=== PATIENT | male | born 1975 | race Caucasian/White ===

== ENCOUNTER → 2017-05-21 11:58 | Outpatient (CLI) | payer MEDICAID ==
[2013-04-09 10:22] VITALS: BMI 36.3
== END | disposition home or self-care (01) ==
LOC: D.CT 11:30
DX: R20.0 Anesthesia of skin (principal)

== ENCOUNTER → 2018-05-27 19:25 | Outpatient (CLI) | payer MEDICAID ==
[2013-04-09 10:22] VITALS: BMI 36.3
== END | disposition home or self-care (01) ==
LOC: D.SLEEP 19:25
DX: G47.33 Obstructive sleep apnea (adult) (pediatric) (principal); Z01.812 Encounter for preprocedural laboratory examination

== ENCOUNTER 2020-04-26 12:35 | Inpatient (IN) | payer MEDICARE ==
[~2020-04-26] VITALS: Ht 180.3 cm; Wt 150.3 kg
[2020-04-26] MEDS ORDERED: BAYER CHEWABLE81 MG PO (12:57)
[2020-04-26] MEDS ORDERED: NORVASC10 MG PO (12:58)
[2020-04-26] MEDS ORDERED: KLONOPIN1 MG PO (12:59)
[2020-04-26] MEDS ORDERED: CLARITIN 10 MG10 MG PO (12:59)
[2020-04-26] MEDS ORDERED: CELEXA20 MG PO (12:59)
[2020-04-26] MEDS ORDERED: HYDRALAZINE HCL50 MG PO (13:00)
[2020-04-26] MEDS ORDERED: VIBRAMYCIN 100100 MG PO (13:00)
[2020-04-26] MEDS ORDERED: KEFLEX500 MG PO (13:01)
[2020-04-26] MEDS ORDERED: LEVEMIR IN100 UNITS/ SC (13:01)
[2020-04-26] MEDS ORDERED: GLUCOPHAGE1000 MG PO (13:02)
[2020-04-26] MEDS ORDERED: COZAAR100 MG PO (13:02)
[2020-04-26] MEDS ORDERED: METOPROLOL TART50 MG PO (13:02)
[2020-04-26] MEDS ORDERED: NIASPAN500 MG PO (13:02)
[2020-04-26] MEDS ORDERED: HYDROCODON-ACE1 EA10 PO (13:03)
[2020-04-26] MEDS ORDERED: NORTRIPTYLINE H50 MG PO (13:03)
[2020-04-26] MEDS ORDERED: NOVOLOG100 UNIT/1 SC (13:04)
[2020-04-26 13:05] VITALS: BP 137/84; BMI 44.0
--- NOTE | 2020-04-26 13:11 | NUR ---
PATIENT ADMITTED TO ROOM 2203. IV SITED TO LEFT HAND AFTER THREE ATTEMPS WITH 22 GAUGE. BED LOW. CALL DUVALL AND PESRONAL ITEMS IN REACH. MOM TAKING HOME WALLET. WILL CONTINUE TO MONITOR.
--- NOTE | 2020-04-26 13:27 | NUR ---
SPOKE WITH HERMILO WOUND CARE NURSE. STATES WAIT AND WILL CHANGE DRSG AND GET CULTURE WITH NURSE.
--- NOTE | 2020-04-26 14:41 | NUR ---
LEFT #5 TOE HAS DEGLOVED AND IS ENTIRELY PURPLE IN COLOR AND COOL TO TOUCH. PT STATED HE "STUMPED IT" A FEW DAYS AGO AND NOW NOT ONLY IS THE TOE DISCOLORED BUT HIS FOOT AND HOSKINS ARE REDDENED. THE RED AREAS WERE MARKED BY HIS NURSE. DOPPLER PULSE WAS TAKEN BY HIS NURSE ALSO. CULTURES WERE OBTAINED PER ORDERED BUT THEY WERE TAKEN SUPERFICIALLY THERE WAS NO OPEN WOUND BED. IT WAS COVERED WITH ADAPTIC AND A 4X4 THEN WRAPPED WITH KERLIX FOR PROTECTION. WOUND CARE WILL CONTINUE MONITORING.
[2020-04-26 16:03] LABS: HEMATOCRIT 35.9 % (42.0-54.0); HEMOGLOBIN 11.4 g/dL (13.5-17.5); MCH 27.7 pg (26.0-34.0); MCHC 31.8 g/dL (31.0-37.0); MCV 87.3 fL (80.0-100.0); MEAN PLATELET VOLUME 9.7 fL (7.4-10.4); PLATELET COUNT 433 10x3/uL (130-400); RBC 4.11 10x6/uL (4.20-6.10); RDW 13.6 % (11.5-14.5); WBC 20.1 10x3/uL (4.8-10.8)
[2020-04-26 16:04] LABS: ALBUMIN 2.2 g/dL (3.4-5.0); ANION GAP 17.5 mmol/L (8-16); BILIRUBIN - TOTAL 0.41 mg/dL (0.2-1.3); CALCIUM 8.9 mg/dL (8.5-10.1); CARBON DIOXIDE 21.8 mmol/L (21.0-32.0); CREATININE - SERUM 3.1 mg/dL (0.6-1.3); POTASSIUM - SERUM 5.3 mmol/L (3.5-5.1); PROTEIN - SERUM 8.1 g/dL (6.4-8.2); THYROID STIMULATING HORMONE 1.74 uIU/mL (0.36-3.74)
--- NOTE | 2020-04-26 16:16 | NUR ---
KATE MCKINNEY NOTIFIED OF BLOOD SUGAR 476. STATES GIVE PER SLIDING SCALE AND CHANGE TO BLOOD SUGAR CHECK Q4HR.
--- NOTE | 2020-04-26 17:12 | NUR ---
SPOKE WITH DR ROJAS AT [facility] WHO STATES OK TO FINISH RUNNING VANC PRIOR TO GIVING ORDERED NS BOLUS.
[2020-04-26 17:31] LABS: EOSINOPHILS 1 % (0-7); LYMPHOCYTES 15 % (15-50); NEUTROPHILS 84 % (40-80); PLATELET ESTIMATE NORMAL
[2020-04-26 17:51] VITALS: BP 134/77
--- NOTE | 2020-04-26 20:00 | NUR ---
PT SITTING UP AT EDGE OF BED, TRIPOD POSITION OVER BEDSIDE TABLE. MOTHER AT BEDSIDE. PT STATES HE HAS HAD A HARD TIME BREATHING, HE HAS SLEEP APNEA AND CPAP AT BEDSIDE. STATES HE CANNOT GET COMFORTABLE IN ANY POSITION, FEEL HEAVY CHESTED AND LIKE HE HAS A LUMP IN HIS THROAT. O2 SAT 69% ON ROOM AIR. RESP CALLED TO ROOM. PT PLACED ON 5L/NC, FAYE ZAMUDIO [employer]ER[employer]AKER HELPER CALLED. NEW ORDERS RECIEVED FOR STAT ABG, CHEST XRAY, LABS, 1L NS AFTER 500ML NS BOLUS IS COMPLETE. FAYE ZAMUDIO TO BEDSIDE. ABG RESULTS GIVEN. BIPAP PLACED ON PT. STATED HE FELT BETTER WITH BIPAP, O2 SAT 98%. FAYE ORDERED TO TRANSFER TO ICU AND CALL PHYSICIAN CONSULTS TONIGHT. ANABELLE CAME TO BEDSIDE AT THIS TIME TO EXAMINE PT FOOT. FSBS 398, INSULIN AND LANTUS GIVEN. CALLED REPORT TO NITO AT 2114. PT MOVED TO ICU AT 2144 ONCE ROOM WAS READY. CHART AND INSULIN/LANTUS TAKEN WITH PATIENT. PT HAD NO BELONGINGS EXCEPT CELL PHONE. MOTHER NOTIFIED OF TRANSFER. STATES SHE WILL CALL FOR UPDATE ONCE HE IS SETTLED IN ICU.
[2020-04-26 20:18] LABS: APTT 38.2 SECONDS (22.8-39.4); INR 1.13 (0.85-1.17); PROTIME 14.4 SECONDS (11.6-15.0)
[2020-04-26 20:19] LABS: D-DIMER-QUANTITATIVE 1.68 ug/mLFEU (0.20-0.54)
--- NOTE | 2020-04-26 21:45 | NUR ---
PAGED RENAL FOR CONSULT. NEW ORDERS RECIEVED.
[2020-04-26 21:55] VITALS: BP 118/69
--- NOTE | 2020-04-26 22:16 | NUR ---
PATIENT ARRIVED TO UNIT. SHORT OF BREATH ON 6 L NASAL CANNULA. TRANSFERRED TO BED AND IMMEDIATELY SHORT OF BREATH. PATIENT ST ATED HE IS A FULL CODE. ALERT AND ORIENTED. DISCUSSED IBRAHIM PER RENAL. 6 L 89%. PAGED DR PAUL TO SEE WHAT HE WANTS DUE TO POSS COVID AND BIPAP SITUATION. NS AT 50 CC. CRACKLES IN LUNGS WITH DIMINISHED LOWER AND MIDDLE LOBES. SINUS TACH 138. S1S2. CAP REFILL LESS THAN 3. HOB AT 80 DEGREES. BED LOW AND LOCKED. NO PATIENT BELONGINGS.
--- NOTE | 2020-04-26 22:33 | NUR ---
NEW ORDERS FROM DR PAUL
[2020-04-26 23:00] VITALS: BP 149/88
--- NOTE | 2020-04-26 23:17 | NUR ---
IBRAHIM IN PER RENAL
--- NOTE | 2020-04-26 23:48 | NUR ---
DR MYERS CALLED. UPDATE GIVEN. NEW ORDERS RECIEVED
[2020-04-27] VITALS (24 sets, daily range): BP systolic 99–161; BP diastolic 72–95; Ht 180.3 cm; Wt 150.3 kg
[2020-04-27 01:32] LABS: BILIRUBIN NEGATIVE (NEGATIVE); GLUCOSE 1000 mg/dL (NEGATIVE); KETONE NEGATIVE (NEGATIVE); NITRITE NEGATIVE (NEGATIVE); SPECIFIC GRAVITY 1.025 (1.005-1.020); UROBILINOGEN NORMAL (NORMAL)
[2020-04-27 01:34] LABS: BACTERIA FEW /hpf (NEGATIVE); EPITHELIAL CELLS 0-5 /hpf (0-5); RED CELLS - URINE 0-5 /hpf (0-5); WHITE CELLS - URINE NSEEN /hpf (NEGATIVE)
--- NOTE | 2020-04-27 02:43 | NUR ---
patient wants to take off bipap. reducated on reason bipap can not come off
--- NOTE | 2020-04-27 05:04 | NUR ---
am labs drawn
[2020-04-27 05:51] LABS: CALCIUM 8.5 mg/dL (8.5-10.1); CARBON DIOXIDE 23.2 mmol/L (21.0-32.0); MAGNESIUM - SERUM 2.2 mg/dL (1.8-2.4); PHOSPHOROUS 3.3 mg/dL (2.5-4.9); VANCOMYCIN - RANDOM 9.5 ug/mL (10.0-20.0)
[2020-04-27 05:52] LABS: BASOPHILS 0.5 % (0-2); EOSINOPHILS 1.2 % (0-7); HEMATOCRIT 32.6 % (42.0-54.0); HEMOGLOBIN 10.4 g/dL (13.5-17.5); IMMATURE GRANULOCYTES 1.6 % (0-5); LYMPHOCYTES 8.6 % (15-50); MCH 27.3 pg (26.0-34.0); MCHC 31.9 g/dL (31.0-37.0); MCV 85.6 fL (80.0-100.0); MEAN PLATELET VOLUME 9.7 fL (7.4-10.4); MONOCYTES 5.2 % (2-11); NEUTROPHILS 82.9 % (40-80); PLATELET COUNT 377 10x3/uL (130-400); RBC 3.81 10x6/uL (4.20-6.10); RDW 13.6 % (11.5-14.5); WBC 18.7 10x3/uL (4.8-10.8)
[2020-04-27 05:55] LABS: POTASSIUM - SERUM 4.2 mmol/L (3.5-5.1)
--- NOTE | 2020-04-27 06:01 | NUR ---
DR GUARDADO CALLED. NEW ORDERS REGARDING BLOOD SUGARS.
--- NOTE | 2020-04-27 07:00 | NUR ---
AWAKE PLACED ON 6 LITERS HIGH FLOW OXYGEN. ALERT. STATES HE IS BREATHING MUCH BETTER DID NOT SLEEP WELL ON BIPAP. IV LEFT HAND WITHOUT REDNESS OR SWELLING INFUSING WITH NS AT 50 ML HOUR. IBRAHIM CATH PATENT DRAINING CLOUDY YELLOW URINE. MONITOR ATRIAL FLUTTER RATE IN 120'S.
--- NOTE | 2020-04-27 09:00 | NUR ---
DR. PAUL AND DR. CUNNINGHAM HERE LOPRESSOR 2.5 MG IV ORDERED TWICE FOR ELEVATED HEAR RATE. CARDIOLOGY CONSULTED CORDARONE BOLUS WITH GTT ORDERED.
[2020-04-27 09:07] LABS: % SATURATION 8 % (15-55); IRON 15 ug/dl (35-150); TOTAL IRON BIND CAPACITY 170 ug/dl (260-445); UNSAT IRON BIND CAPACITY 155 ug/dl (150-375)
--- NOTE | 2020-04-27 11:37 | NUR ---
UP ON BEDSIDE COMMODE, STRANGED TO HAVE A BM. PATIENT BECAME COLD AND CLAMMY. STATES HE FELT PRETTY BAD. FEELING BETTER NOW. WASHED DOWN WITH READY BATH WIPES. CLEAN GOWN AND PAD PLACED ON BED. AMBULATED BACK TO BED. GAIT GOOD. MONITOR STILL 124 RATE. CORDARONE GTT 1MCG/MIN. IV LEFT HAND WITHOUT REDNESS OR DRAINAGE. TOLERATES TRANSFER POORLY. DISCUSS USING BED ROSENTHAL NEXT TIME.
--- NOTE | 2020-04-27 13:00 | NUR ---
NOT MUCH APPETITE. TAking po fluids well
--- NOTE | 2020-04-27 15:00 | NUR ---
FAMILY AT BEDSIDE, UPDATE GIVEN
[2020-04-27 16:27] LABS: CREATININE - URINE 129.8 mg/dL (30-125)
[2020-04-27 16:31] LABS: PRO/CRE RATIO URINE 3.6 mg/g; PROTEIN - URINE 471.2 mg/dL (0.0-11.9)
[2020-04-27 16:57] LABS: BILIRUBIN NEGATIVE (NEGATIVE); GLUCOSE 1000 mg/dL (NEGATIVE); KETONE NEGATIVE (NEGATIVE); NITRITE NEGATIVE (NEGATIVE); UROBILINOGEN NORMAL (NORMAL)
[2020-04-27 16:59] LABS: BACTERIA MANY /hpf (NEGATIVE); RED CELLS - URINE >50 /hpf (0-5)
--- NOTE | 2020-04-27 17:00 | NUR ---
on bedpan several times, passing gas. no bowel movement. monitor rate 110-150. cordaron gtt continues at 1 mg/min.
--- NOTE | 2020-04-27 21:46 | NUR ---
patient hr 133. when awakened hr increases to 155 to 160.
[2020-04-28] VITALS (24 sets, daily range): BP systolic 112–154; BP diastolic 48–99
--- NOTE | 2020-04-28 01:44 | NUR ---
patient swtiched to nasal cannula durong this time. awake and alert.
--- NOTE | 2020-04-28 01:45 | NUR ---
2300- patient on bipap. resting. reassessment done.
--- NOTE | 2020-04-28 01:45 | NUR ---
1900- patient put on bipap 40%
--- NOTE | 2020-04-28 01:48 | NUR ---
2100- patient on bedside commode. amblated ok. water provided.
--- NOTE | 2020-04-28 03:19 | NUR ---
daily weight done. reassessment done.
[2020-04-28 05:05] LABS: BASOPHILS 0.3 % (0-2); EOSINOPHILS 1.6 % (0-7); HEMATOCRIT 32.1 % (42.0-54.0); HEMOGLOBIN 10.2 g/dL (13.5-17.5); IMMATURE GRANULOCYTES 1.1 % (0-5); LYMPHOCYTES 9.9 % (15-50); MCH 27.2 pg (26.0-34.0); MCHC 31.8 g/dL (31.0-37.0); MCV 85.6 fL (80.0-100.0); MEAN PLATELET VOLUME 9.5 fL (7.4-10.4); NEUTROPHILS 82.1 % (40-80); PLATELET COUNT 422 10x3/uL (130-400); RBC 3.75 10x6/uL (4.20-6.10); RDW 13.7 % (11.5-14.5); WBC 19.2 10x3/uL (4.8-10.8)
[2020-04-28 05:22] LABS: ANION GAP 12.5 mmol/L (8-16); CALCIUM 8.4 mg/dL (8.5-10.1); CARBON DIOXIDE 25.4 mmol/L (21.0-32.0); CREATININE - SERUM 3.2 mg/dL (0.6-1.3); MAGNESIUM - SERUM 2.3 mg/dL (1.8-2.4); POTASSIUM - SERUM 3.9 mmol/L (3.5-5.1); VANCOMYCIN - RANDOM 16.4 ug/mL (10.0-20.0)
--- NOTE | 2020-04-28 05:44 | NUR ---
dr lao at bedside.
--- NOTE | 2020-04-28 10:05 | NUR ---
DR RAZA PAGEVarinder REGARDING CLARIFICATION OF DIGOXIN ORDER. KATE CRYSTAL CAME BY TO SEE PT AND ORDER CLARIFICATION WAS RECIEVED. NO ACUTE DISTRESS NOTED. WILL CONTINUE PLAN OF CARE.
--- NOTE | 2020-04-28 14:53 | NUR ---
UP IN BED AWAKE AT THIS TIME. VSS. NO ACUTE DISTRESS NOTED. CALL LIGHT IN REACH. WILL CONTINUE PLAN OF CARE.
--- NOTE | 2020-04-28 16:51 | NUR ---
CHG BATH OFFERED TO PT, PT REFUSED STATING HE HAD ONE THIS MORNING. ALSO OFFERED TO CHANGE PTS LINENS, HE STATED HE DID NOT WANT HIS LINENS CHANGED AT THIS TIME. VSS. NO ACUTE DISTRESS NOTED. WILL CONTINUE PLAN OF CARE.
--- NOTE | 2020-04-28 19:00 | NUR ---
ASSESSMENT COMPLETED.SEE FLOWSHEETS FOR ALL FINSIGNS. ASSISTED PT TO BSC. NO RESULTS NOTED. PT STATES WAS GAS. BACK TO BED , SOB AND DYSPNEA NOTED WITH EXERTION. HOB UP. SIDE RAILS UP. HR ON CM AFIB TO 122BPM WITH ACTIVITY. CALL LIGHT IN REACH. CPOC.
--- NOTE | 2020-04-28 21:00 | NUR ---
SCHEDULED MEDS GIVEN WITHOUT DIFFIC. BS TO 305. INSULIN COVERED PER S/S. CPOC.
--- NOTE | 2020-04-28 23:00 | NUR ---
REASSESSMENT COMPLETED. SEE FLOWSHEETS FOR ALL FINDINGS. PT RESTING QUIETLY WITHOUT DISTRESS VIA BIPAP. NO NEEDS VOICES. CONT TO MONITOR.
[2020-04-29] VITALS (12 sets, daily range): BP systolic 111–151; BP diastolic 63–94
--- NOTE | 2020-04-29 01:00 | NUR ---
PT RESTING QUIETLY ON BIPAP. NO NEEDS VOICES. ST ON CM, CONT AMIODARONE GTT PER ORDER. NO NEEDS VOICES AT THIS TIME.CALL LIGHT IN REACH. CPOC.
--- NOTE | 2020-04-29 03:00 | NUR ---
REASSESSMENT COMPLETED. NO ACUTE CHANGES IN PT'S STATUS NOTED. CPOC.
--- NOTE | 2020-04-29 03:30 | NUR ---
PT C/O N/V. HOB UP. COLD WASHCLOTH APPLIED TO FOREHEAD. MOUTH CARE PROVIDED. ZOFRAN 4MG IVP GIVEN PER ORDER. CONT TO MONITOR.
[2020-04-29 03:35] LABS: BASOPHILS 0.3 % (0-2); EOSINOPHILS 1.7 % (0-7); HEMOGLOBIN 10.5 g/dL (13.5-17.5); IMMATURE GRANULOCYTES 0.9 % (0-5); LYMPHOCYTES 6.1 % (15-50); MCH 27.1 pg (26.0-34.0); MCHC 31.8 g/dL (31.0-37.0); MCV 85.1 fL (80.0-100.0); MEAN PLATELET VOLUME 9.3 fL (7.4-10.4); MONOCYTES 5.5 % (2-11); NEUTROPHILS 85.5 % (40-80); PLATELET COUNT 456 10x3/uL (130-400); RBC 3.88 10x6/uL (4.20-6.10); RDW 13.8 % (11.5-14.5); WBC 19.4 10x3/uL (4.8-10.8)
[2020-04-29 04:00] LABS: CALCIUM 8.5 mg/dL (8.5-10.1); CARBON DIOXIDE 27.7 mmol/L (21.0-32.0); CREATININE - SERUM 3.4 mg/dL (0.6-1.3); MAGNESIUM - SERUM 2.1 mg/dL (1.8-2.4); PHOSPHOROUS 4.1 mg/dL (2.5-4.9); POTASSIUM - SERUM 3.7 mmol/L (3.5-5.1); VANCOMYCIN - RANDOM 25.9 ug/mL (10.0-20.0)
--- NOTE | 2020-04-29 04:15 | NUR ---
I&OP COMPLETED TO CHART.
--- NOTE | 2020-04-29 07:15 | NUR ---
REPORT RECIEVED, SHIFT ASSESSMENT COMPLETE, PT IS ALERT AND ORIENTED, ON 4L NS WITH 97% O2 SAT. ALL PPP, VSS, CALL LIGHT IN REACH
--- NOTE | 2020-04-29 08:00 | NUR ---
DR. CUNNINGHAM AT BEDSIDE, UPDATE GIVEN, OK TO TRANSFER OUT OF UNIT
--- NOTE | 2020-04-29 10:41 | NUR ---
Nutrition follow-up: Diet: ADA consistent CHO PO intake ~50% of some meals PO intake decreased due to nausea, vomiting overnight Large BM today; pt feeling better. Pt has Tx orders to floor. Labs reviewed WT: 316# RDN following.
--- NOTE | 2020-04-29 11:00 | NUR ---
PT RESTING AT THIS TIME, WILL CON'T TO MONITOR
--- NOTE | 2020-04-29 13:00 | NUR ---
NO NEEDS NOTED AT THIS TIME, WILL CON'T TO MONITOR
--- NOTE | 2020-04-29 13:13 | NUR ---
Nutrition follow-up: Pt reports eating large amounts of cho foods. Pt reports he has had diabetic diet education several times and is very familiar with CHO counting. Pt states he just chooses not to follow the recommendations. Pt was able to identify all CHO on his lunch tray. Pt with good understanding of diabetic diet recommendations. Provided pt with printed diet information and RDN name and phone number. RDN will be available if needed.
--- NOTE | 2020-04-29 15:00 | NUR ---
FAMILY AT BEDSIDE, UPDATE GIVEN
--- NOTE | 2020-04-29 17:15 | NUR ---
DINNER TRAY GIVEN
--- NOTE | 2020-04-29 19:00 | NUR ---
REPORT RECEIVED. RECEIVED PATIENT IN BED AWAKE ALERT AND ORIENTED X 4. ASSESSMENT COMPLETED PER FLOW SHEET WITH NO ACUTE DISTRESS OBSERVED. VSS . CALL LIGHT IN REACH AND ABLE TO UTILIZE TO MAKE NEEDS KNOWN.
[2020-04-30] VITALS (13 sets, daily range): BP systolic 134–161; BP diastolic 70–113
[2020-04-30 03:41] LABS: HEMATOCRIT 32.6 % (42.0-54.0); HEMOGLOBIN 10.1 g/dL (13.5-17.5); MCH 26.9 pg (26.0-34.0); MCV 86.9 fL (80.0-100.0); MEAN PLATELET VOLUME 9.3 fL (7.4-10.4); PLATELET COUNT 465 10x3/uL (130-400); RBC 3.75 10x6/uL (4.20-6.10); WBC 21.4 10x3/uL (4.8-10.8)
[2020-04-30 03:55] LABS: EOSINOPHILS 2 % (0-7); LYMPHOCYTES 16 % (15-50); MONOCYTES 4 % (2-11); NEUTROPHILS 78 % (40-80); PLATELET ESTIMATE NORMAL
[2020-04-30 04:03] LABS: ANION GAP 13.2 mmol/L (8-16); CALCIUM 8.3 mg/dL (8.5-10.1); CARBON DIOXIDE 24.7 mmol/L (21.0-32.0); MAGNESIUM - SERUM 2.1 mg/dL (1.8-2.4); PHOSPHOROUS 4.7 mg/dL (2.5-4.9); POTASSIUM - SERUM 3.9 mmol/L (3.5-5.1); VANCOMYCIN - RANDOM 15.6 ug/mL (10.0-20.0)
--- NOTE | 2020-04-30 06:00 | NUR ---
IV LEFT HAND INFILTRATED. IV DC'ED WITH CATH INTACT. L HAND AND FOREARM REDDENED AND TENDER. ICE PACK PROVIDED. IV 20 GAUGE INITIATED TO RFA X 1 ATTEMPT/SECURED. PATIENT YONI WELL.
--- NOTE | 2020-04-30 10:33 | NUR ---
1015: TO OR VIA BED
--- NOTE | 2020-04-30 10:49 | NUR ---
1000: TO OR VIA BED 1040: RETURN FROM OR. AWAKE AND ALERT. PLACED ON BEDSIDE MONITOR AND VS OBTAINED.
--- NOTE | 2020-04-30 19:00 | NUR ---
REPORT RECEIVED. RECEIVED PATIENT IN BED. AWAKE ALERT AND ORIENTED X 4. VSS. CALL LIGHT IN REACH AND ABLE TO UTILIZE TO MAKE NEEDS KNOWN. ASSESSMENT COMPLETED PER FLOW SHEET WITH NO ACUTE DISTRESS OBSERVED.
[2020-05-01 03:00] VITALS: BP 149/90
[2020-05-01 03:41] LABS: BASOPHILS 0.3 % (0-2); EOSINOPHILS 2.9 % (0-7); HEMATOCRIT 30.6 % (42.0-54.0); HEMOGLOBIN 9.4 g/dL (13.5-17.5); IMMATURE GRANULOCYTES 0.7 % (0-5); MCH 27.2 pg (26.0-34.0); MCHC 30.7 g/dL (31.0-37.0); MCV 88.4 fL (80.0-100.0); MEAN PLATELET VOLUME 9.2 fL (7.4-10.4); MONOCYTES 5.9 % (2-11); NEUTROPHILS 81.2 % (40-80); PLATELET COUNT 441 10x3/uL (130-400); RBC 3.46 10x6/uL (4.20-6.10); RDW 14.2 % (11.5-14.5); WBC 19.3 10x3/uL (4.8-10.8)
[2020-05-01 03:51] LABS: ANION GAP 12.7 mmol/L (8-16); CALCIUM 8.2 mg/dL (8.5-10.1); CARBON DIOXIDE 25.2 mmol/L (21.0-32.0); CREATININE - SERUM 3.8 mg/dL (0.6-1.3); MAGNESIUM - SERUM 2.4 mg/dL (1.8-2.4); PHOSPHOROUS 5.1 mg/dL (2.5-4.9); POTASSIUM - SERUM 3.9 mmol/L (3.5-5.1); VANCOMYCIN - RANDOM 24.4 ug/mL (10.0-20.0)
--- NOTE | 2020-05-01 07:20 | OP ---
PATIENT NAME: MYRTLE LANDON JR MEDICAL RECORD: [id number] :73 LOCATION:[facility] D.2314 ADMISSION DATE:04/26/20 SURGEON: ASHLEY AHN DO DATE OF OPERATION: 04/30/2020 PROCEDURE PERFORMED: Left foot incision and debridement with small toe amputation and wound VAC application. PREOPERATIVE DIAGNOSES: Left small toe necrosis and a left foot infection. POSTOPERATIVE DIAGNOSES: Left small toe necrosis and a left foot infection. INDICATIONS: Mr. Landon is a 44-year-old diabetic male who presented to his primary care's office earlier this week with an inflamed left foot and necrotic small toe. He had cellulitis extending from the foot all the way up to the mid tibia. He was admitted, placed on IV antibiotics and ended up having bilateral pneumonia, went to the ICU. Once he was more medically stable, I informed him we needed to take that toe off and probably do foot I&D. He may need in the future a below-knee amputation due to the extensive infection in the foot. He was okay with that and he wanted to try the I&D and get the toe off. He was aware of the risks including continued infection, bleeding, damage to nerves and vessels even though he did not have any sensation of his foot. He also was aware of the risk of blood clots, even and need for further surgery. SURGEON: Ashley Ahn DO DESCRIPTION OF PROCEDURE: The patient was taken to the operative suite, laid in supine position, given TIVA for anesthesia. Since he did not have any sensation of his leg, the left lower extremity was then prepped and draped in sterile fashion. A timeout was performed, everyone was in agreeance with the correct site, side, patient and procedure. I then began by making an elliptical incision around the small toe, removing the toe and rongeuring back the fifth metatarsal, removing the cartilage to the fifth metatarsal head. Once that was rongeured back, I made an incision on the plantar aspect just at the skin level. As the skin was , I peeled off the skin that was and then took a curette on the dorsal side and copious amounts of purulent fluid was flushed out with a curette and I debrided the necrotic tissue around that area. I then irrigated the site with over a liter of normal saline and then continued to debride with the curette and pickup and scalpel. Once the necrotic tissue was removed, we dried the foot off and put a wound VAC on and held suction well. He was then wrapped with cast pad and Adan wrap and taken back to the ICU in stable condition. BLOOD LOSS: Minimal. COMPLICATIONS: None. TRANSINT:[id number] Voice Confirmation ID: [id number] DOCUMENT ID: [id number] OPERATIVE REPORT [id number] MYRTLE LANDON JR, MICHAEL D, DO at 0720 CC: [id number] DICTATION DATE: 04/30/20 1055 FIGURE CLERK: 04/30/[address] [facility] [address] [place] [address]
[2020-05-01 07:45] VITALS: BP 158/99
[2020-05-01 11:27] VITALS: BP 132/81
[2020-05-01 15:15] VITALS: BP 145/81
[2020-05-01 19:00] VITALS: BP 136/78
--- NOTE | 2020-05-01 19:10 | NUR ---
RECEIVED CARE OF PT, ASSESSMENT PER FLOWSHEET. HR SR ON CM, PPP, LLE DRESSING CDI. BED LOW, CALL LIGHT IN REACH
--- NOTE | 2020-05-01 22:50 | NUR ---
PLACED ON BIPAP PER PT REQUEST
[2020-05-01 23:00] VITALS: BP 136/82
[2020-05-02 03:00] VITALS: BP 137/72
--- NOTE | 2020-05-02 06:20 | NUR ---
NO VISITORS PRESENT AT THIS TIME, VSS, CONT TO MONITOR.
[2020-05-02 07:00] VITALS: BP 160/74
--- NOTE | 2020-05-02 07:20 | NUR ---
REPORT RECIEVED, SHIFT ASSESSMENT COMPLETE, PT IS ALERT AND ORIENTED, ON 4L NC WITH 97% O2 SAT. ALL PPP, VSS, CALL LIGHT IN REACH
[2020-05-02 08:08] LABS: ANION GAP 15.5 mmol/L (8-16); CALCIUM 8.5 mg/dL (8.5-10.1); CARBON DIOXIDE 21.5 mmol/L (21.0-32.0); CREATININE - SERUM 3.3 mg/dL (0.6-1.3)
[2020-05-02 08:09] LABS: HEMATOCRIT 30.2 % (42.0-54.0); HEMOGLOBIN 9.5 g/dL (13.5-17.5); LYMPHOCYTES 13.5 % (15-50); MCH 27.2 pg (26.0-34.0); MCHC 31.5 g/dL (31.0-37.0); MCV 86.5 fL (80.0-100.0); MEAN PLATELET VOLUME 9.6 fL (7.4-10.4); NEUTROPHILS 80.9 % (40-80); PLATELET COUNT 507 10x3/uL (130-400); RBC 3.49 10x6/uL (4.20-6.10); RDW 13.1 % (11.5-14.5); WBC 16.2 10x3/uL (4.8-10.8)
--- NOTE | 2020-05-02 10:19 | NUR ---
Nutrition follow-up: Diet: ADA consistent CHO PO Intake 100% of most meals BIPAP on at times Labs reviewed Toe amputation; POD 2 Wt: 331# PO intake continues to be good at this time RDN following.
[2020-05-02 11:00] VITALS: BP 142/64
--- NOTE | 2020-05-02 11:00 | NUR ---
PT RESTING COMFORTABLY AT THIS TIME, WILL CON'T TO MONITOR
--- NOTE | 2020-05-02 13:00 | NUR ---
FAMILY AT BEDSIDE, NO NEEDS NOTED,
--- NOTE | 2020-05-02 15:50 | NUR ---
REPORT CALLED TO ARLEY ON MED SURG
--- NOTE | 2020-05-02 19:03 | MORECARE ---
CASE MANAGEMENT DISCHARGE SUMMARY PATIENT: MYRTLE LANDON UNIT: [id number] ADM DATE: 04/26/20 AGE: 44 : [birth year] SEX: M ROOM/BED: D.2226 AUTHOR: CHERISE,DOC PHYSICIAN: REFERRING PHYSICIAN: ASHLEY MYERS MD DATE OF SERVICE: 05/02/20 Discharge Plan Patient Name: MYRTLE LANDON Facility: [facility]:[place] : 1975 Planned Disposition: Home Anticipated Discharge Date: Discharge Date: Expected LOS: Initial Reviewer: [email or web address] Initial Review Date: 04/26/2020 Generated: 05/02/20 8:02 pm Comments DCP- Discharge Planning Updated by [email or web address]: Catherine Brand on 05/02/20 6:[address] Patient Name: MYRTLE LANDON Admission Status: Urgent Accout number: [id number] Admission Date: 04-26-2020 : 1975 Admission Diagnosis: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 CM educated patient on the CM role and verbal consent given by patient to complete assessment. Patient lives at home with 15 YR old daughter. Patient is independent. At discharge patient plans to return home and feels this is a safe discharge. CM discussed availability of home health, rehab services, and medical equipment. Patient is scheduled for BKA in am and is unsure of what his needs will be. Patient states that if he needs HH or Rehab then he will agree. TANNER signed for DME/HH/ INPATIENT REHAB. Patient will have family to transport home. Patient denied known discharge needs at this time. CM will continue to follow and will assist as needed with dc plans/needs. Head Loft Worker: Catherine Brand DCPIA - Discharge Planning Initial Assessment Updated by [id number]: Catherine Brand on 05/02/20 6:56 pm * Is the patient Alert and Oriented? Yes * How many steps to enter\exit or inside your home? 10 * PCP [facility] * [facility] * Preadmission Environment Home with Family * ADLs Independent * Equipment CPAP * List name and contact numbers for known caregivers / representatives who currently or will assist patient after discharge: [facility] - [facility]- [phone] * Verbal permission to speak to the caregivers and representatives has been obtained from the patient. Yes * Community resources currently utilized None * Additional services required to return to the preadmission environment? No * Can the patient safely return to the preadmission environment? Yes * Has this patient been hospitalized within the prior 30 days at any hospital? No Coverage Notice Reviewer: [id number] Edin Brand Notice Issued Date-Time: 05/02/2020 13:10 Notice Type: Patient Choice Letter Notice Delivered To: Patient Relationship to Patient: Self Duco Polisher Name: Delivery Method: HAND - Hand Delivered Majo Days: Prior Verbal Notification: Recipient Understood Notice: Yes Recipient Signature: Yes Med Rec Note Co-signed by Attending: Coverage Notice Comment: Patient Name: MYRTLE LANDON Page [phone] at 1903 All edits/amendments must be made on the electronic document DICTATION DATE: 05/02/201901 COLLEGE ADMISSIONS COUNSELOR: JERRY 05/02/201901 RPT#: [id number] DC DATE: STATUS: ADM IN [facility] [address] [place] [address] END OF REPORT
[2020-05-02 20:33] VITALS: BP 152/77
--- NOTE | 2020-05-02 21:00 | NUR ---
A&O X 4. PTP REPORTS INTERMITENT PAIN OF 8/10 TO LEFT LOWER EXTREMETY. DRESSING CDI, WOUNDVAC PRESENT. EKG PERFORMED, SCANNED AND SET IN CHART. WILL CONTINUE TO MONITOR.
[2020-05-03] VITALS (12 sets, daily range): BP systolic 129–164; BP diastolic 65–84
[2020-05-03 05:22] LABS: BASOPHILS 0.2 % (0-2); EOSINOPHILS 3.7 % (0-7); HEMATOCRIT 29.6 % (42.0-54.0); HEMOGLOBIN 9.1 g/dL (13.5-17.5); IMMATURE GRANULOCYTES 0.7 % (0-5); LYMPHOCYTES 9.8 % (15-50); MCHC 30.7 g/dL (31.0-37.0); MCV 87.8 fL (80.0-100.0); MEAN PLATELET VOLUME 9.2 fL (7.4-10.4); MONOCYTES 5.6 % (2-11); PLATELET COUNT 521 10x3/uL (130-400); RBC 3.37 10x6/uL (4.20-6.10); RDW 14.3 % (11.5-14.5); WBC 15.5 10x3/uL (4.8-10.8)
[2020-05-03 05:58] LABS: ANION GAP 14.1 mmol/L (8-16); CALCIUM 8.5 mg/dL (8.5-10.1); CARBON DIOXIDE 22.1 mmol/L (21.0-32.0); CREATININE - SERUM 3.4 mg/dL (0.6-1.3); MAGNESIUM - SERUM 2.5 mg/dL (1.8-2.4); PHOSPHOROUS 5.2 mg/dL (2.5-4.9); POTASSIUM - SERUM 4.2 mmol/L (3.5-5.1); VANCOMYCIN - RANDOM 20.7 ug/mL (10.0-20.0)
--- NOTE | 2020-05-03 07:02 | NUR ---
I have reviewed this patient and I concur with the Shift Assessment completed by the Licensed Practical Nurse today this shift.
--- NOTE | 2020-05-03 18:45 | NUR ---
TO OR VIA BED
--- NOTE | 2020-05-03 18:45 | NUR ---
PT OFF FLOOR TO SUGERY SUITE AT THIS TIME. STABLE CONDITION. FAMILY AT BEDSIDE.
--- NOTE | 2020-05-03 21:30 | NUR ---
PT ARRIVED BACK TO THE FLOOR FROM SURGERY. ALERT AND ORIENTED. NO SIGNS OF DISTRESS. BREATHING EVEN AND UNLABORED. LUNG SOUNDS CLEAR. ABD DISTENDED. LT KNEE BKA DRESSING CLEAN DRY AND INTACT. WOUND VAC PRESENT. RT FA IV DRESSING CLEAN DRY AND INTACT. NO SIGNS OF INFECITON OR INFULTRATION. WILL CONTINUE PLAN OF CARE. CALL LIGHT IN REACH. BED LOWERED AND LOCKED. BED RAILS UPX2.
[2020-05-04] VITALS (9 sets, daily range): BP systolic 114–149; BP diastolic 55–84
--- NOTE | 2020-05-04 02:20 | NUR ---
I have reviewed this patient and I concur with the Shift Assessment completed by the Licensed Practical Nurse today this shift.
--- NOTE | 2020-05-04 02:50 | NUR ---
PT RESTING IN BED. EYES CLOSED. NO SIGNS OF DISTRESS. BREATHING EVEN AND ULABORED. IV SITE RT FA DRESSING CLEAN DRY AND INTACT. NO SIGNS OF INFECTION OR INUFLTRATION. LUNG SOUNDS ACTIVE. LT LEG DRESSING CLEAN DRY AND INTACT. WOUND VAC PRESENT. WILL CONTINUE PLAN OF CARE. CALL LIGHT IN REACH. BED LOWERED AND LOCKED. BED RAILS UPX2.
--- NOTE | 2020-05-04 06:30 | OP ---
PATIENT NAME: MYRTLE LANDON JR MEDICAL RECORD: [id number] :73 LOCATION:[id number] ADMISSION DATE:04/26/20 SURGEON: ASHLEY AHN, DATE OF OPERATION: 05/03/2020 PROCEDURE PERFORMED: Left below-knee amputation. PREOPERATIVE DIAGNOSIS: Left diabetic foot infection. POSTOPERATIVE DIAGNOSIS: Left diabetic foot infection. INDICATIONS: Mr. Landon is a 44-year-old male who presented to the hospital last week with almost septic really from a left foot infection. He had a gangrenous left small toe after stubbing it and his whole foot became infected. I did an I&D with a small toe amputation on Saturday the and encountered copious amounts of purulence in the foot. He had been on IV antibiotics since he got here. The foot actually did not improve. I did put a wound VAC on it and it really got worse. The necrosis went to his mid foot and the erythema went to his ankle and it was not improving and this is actually getting worse. I told him that we could be at this for a while with serial debridements and eventually end up with a below-knee amputation, but I would try the serial debridements if he wanted or do a below-knee amputation and we could be done with it. He chose to do the amputation. I informed him of the risks including infection, bleeding, damage to nerves and vessels in the area, phantom pain, continued pain, and need for above-knee amputation, and he signed the consent. SURGEON: Ashley Ahn MD DESCRIPTION OF THE PROCEDURE: The patient received a block by anesthesia in the preoperative area, was taken to the operative suite, laid in supine position, given general anesthetic and LMA was placed. He is on antibiotics already from the floor. The left lower extremity was prepped and draped in sterile fashion. A timeout was performed, everyone was in agreement with the correct side, site, patient and procedure. I then elevated the left lower extremity and inflated the tourniquet to 350 mmHg and was up for 47 minutes. I then made a fishmouth type incision and went down compartment by compartment through the tibia through all the compartments. I then cut the tibia and the fibula a cm above it. I then beveled cut the tibia. I tied off the vessels and did a traction neurectomy to heal the nerves. The tourniquet was then let down. I then debrided the superficial and posterior compartment, which was left for the pad in order to gain good closure of the stump. I then drilled holes in the tibia and had smooth the tibia out; still was not rough. There are no sharp points. I then used the #2 Ethibond with a horizontal mattress type stitch. I went through the holes in the tibia and cinched off the fascia of the gastroc muscle up to the tibia covering it nicely and then continue with the fascia around debulking as we needed on the lateral and medial sides. I then, with the assistance of Jonathan Garcia, certified surgical first dyer, closed the fascia with #1 Vicryl in a simple and in a [id number]-[id number] fashion. I then closed the skin with 2-0 Vicryl in interrupted fashion and then a 0 Prolene was used in horizontal mattress fashion running on the skin to close it. We then put the Prevena plus VAC on and the suction held well. I then prior to closing had put a drain in and brought out the lateral aspect 1/8 inch drain. He was then awakened and taken to recovery in stable condition. Blood loss approximately 200 mL. OPERATIVE REPORT [id number] MYRTLE LANDON JR COMPLICATIONS: None. TRANSINT:[id number] Voice Confirmation ID: [id number] DOCUMENT ID: [id number] ASHLEY AHN DO at 0630 CC: [id number] DICTATION DATE: 05/03/202057 BILLIARD PLAYER: 05/04/20 0356 ADM IN [facility] [address] [place] [address]
[2020-05-04 06:44] LABS: BASOPHILS 0.4 % (0-2); EOSINOPHILS 3.3 % (0-7); HEMATOCRIT 28.6 % (42.0-54.0); HEMOGLOBIN 8.7 g/dL (13.5-17.5); IMMATURE GRANULOCYTES 0.7 % (0-5); LYMPHOCYTES 9.7 % (15-50); MCH 26.9 pg (26.0-34.0); MCHC 30.4 g/dL (31.0-37.0); MCV 88.5 fL (80.0-100.0); MEAN PLATELET VOLUME 9.2 fL (7.4-10.4); MONOCYTES 6.9 % (2-11); PLATELET COUNT 540 10x3/uL (130-400); RBC 3.23 10x6/uL (4.20-6.10); RDW 14.7 % (11.5-14.5); WBC 16.2 10x3/uL (4.8-10.8)
[2020-05-04 06:57] LABS: CARBON DIOXIDE 20.3 mmol/L (21.0-32.0); CREATININE - SERUM 3.2 mg/dL (0.6-1.3); POTASSIUM - SERUM 4.3 mmol/L (3.5-5.1); VANCOMYCIN - RANDOM 17.6 ug/mL (10.0-20.0)
--- NOTE | 2020-05-04 08:32 | NUR ---
HE IS AWAKE, WAITING FOR BREAKFAST. HE HAS A TRANSITIONAL CARE NURSE, AN IMMOBILIZER ON THE LEFT KNEE WITH A WOUND VAC. THE CALL LIGHT IS WITHIN REACH.
[2020-05-05] VITALS (7 sets, daily range): BP systolic 128–144; BP diastolic 66–83
--- NOTE | 2020-05-05 02:54 | NUR ---
PT RESTING IN BED. EYES CLOSED. NO SIGNS OF DISTRESS. BREATHING EVEN AND UNLABORED. BIPAP ON. IV SITE RT FA DRESSING CLEAN DRY AND INTACT. NO SIGNS OF INFECITON OR INFULTRATION. LUNG SOUNDS CLEAR. BOWEL SOUNDS ACTIVE. LT KNEE DRESSING CLEAN DRY AND INTACT. WOUND VAC PRESENT. WILL CONTINUE PLAN OF CARE. CALL LIGHT IN REACH. BED LOWERED AND LOCKED. BED RAILS UPX2
--- NOTE | 2020-05-05 03:43 | NUR ---
I have reviewed this patient and I concur with the Shift Assessment completed by the Licensed Practical Nurse today this shift.
[2020-05-05 05:34] LABS: BASOPHILS 0.2 % (0-2); EOSINOPHILS 1.9 % (0-7); HEMATOCRIT 27.6 % (42.0-54.0); HEMOGLOBIN 8.4 g/dL (13.5-17.5); LYMPHOCYTES 12.3 % (15-50); MCH 26.8 pg (26.0-34.0); MCHC 30.4 g/dL (31.0-37.0); MCV 87.9 fL (80.0-100.0); MEAN PLATELET VOLUME 9.1 fL (7.4-10.4); NEUTROPHILS 78.6 % (40-80); PLATELET COUNT 515 10x3/uL (130-400); RBC 3.14 10x6/uL (4.20-6.10); RDW 15.1 % (11.5-14.5); WBC 15.5 10x3/uL (4.8-10.8)
[2020-05-05 06:06] LABS: ANION GAP 15.6 mmol/L (8-16); CALCIUM 8.1 mg/dL (8.5-10.1); CARBON DIOXIDE 19.1 mmol/L (21.0-32.0); CREATININE - SERUM 3.4 mg/dL (0.6-1.3); POTASSIUM - SERUM 4.7 mmol/L (3.5-5.1); VANCOMYCIN - RANDOM 19.2 ug/mL (10.0-20.0)
--- NOTE | 2020-05-05 09:09 | NUR ---
HE IS SLEEPY, BUT AROSES TO MY VOICE. HE HAS A WOUND VAC AND A KNEE IMMOBILIZER TO THE LEFT LEG. HIS DAD IS A THE BEDSIDE.
--- NOTE | 2020-05-05 09:47 | NUR ---
REHAB PRESCREENING Rehab referral received and chart reviewed. This patient is a good candidate for Acute Inpatient Rehab. We will begin his paper screen and notify case management when approvals are in place. He will then be ready for admission to rehab when his physicians feel he is appropriate for discharge. Thank you for this referral! Felisha Olguin, IC ENGINEER Rehab PD
--- NOTE | 2020-05-05 12:28 | MORECARE ---
CASE MANAGEMENT DISCHARGE SUMMARY PATIENT: MYRTLE LANDON JR UNIT: [id number] ADM DATE: 04/26/20 AGE: 44 : 73 SEX: M ROOM/BED: D.2226 AUTHOR: CHERISE,DOC PHYSICIAN: REFERRING PHYSICIAN: ASHLEY MYERS MD DATE OF SERVICE: 05/05/20 Discharge Plan Patient Name: MYRTLE LANDON Facility: 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 HE WOULD BENEFIT FROM INPATIENT REHAB WHEN READY FOR DISCHARGE. PREFERS THIS INPATIENT REHAB. CM TO FOLLOW AND ASSIST. 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 CM educated patient on the CM role and verbal consent given by patient to complete assessment. Patient lives at home with 15 YR old daughter. Patient is independent. At discharge patient plans to return home and feels this is a safe discharge. CM discussed availability of home health, rehab services, and medical equipment. Patient is scheduled for BKA in am and is unsure of what his needs will be. Patient states that if he needs HH or Rehab then he will agree. TANNER signed for DME/HH/ INPATIENT REHAB. Patient will have family to transport home. Patient denied known discharge needs at this time. CM will continue to follow and will assist as needed with dc plans/needs. Sanitarian Inspector: Catherine Brand DCPIA - Discharge Planning Initial Assessment Updated by [id number]: Catherine Brand on 05/02/20 6:56 pm * Is the patient Alert and Oriented? Yes * How many steps to enter\exit or inside your home? 10 * PCP MYERS * [facility] * Preadmission Environment Home with Family * ADLs Independent * Equipment CPAP * List name and contact numbers for known caregivers / representatives who currently or will assist patient after discharge: XOCHILT LANDON - [facility]- [phone] * Verbal permission to speak to the caregivers and representatives has been obtained from the patient. Yes * Community resources currently utilized None * Additional services required to return to the preadmission environment? No * Can the patient safely return to the preadmission environment? Yes * Has this patient been hospitalized within the prior 30 days at any hospital? No Coverage Notice Reviewer: [id number] - Catherine Brand Notice Issued Date-Time: 05/02/2020 13:10 Notice Type: Patient Choice Letter Notice Delivered To: Patient Relationship to Patient: Self General Farmworker Name: Delivery Method: HAND - Hand Delivered Majo Days: Prior Verbal Notification: Recipient Understood Notice: Yes Recipient Signature: Yes Med Rec Note Co-signed by Attending: Coverage Notice Comment: Last DP export: 05/02/20 6:03 p Patient Name: MYRTLE LANDON Page 53633 at 1228 All edits/amendments must be made on the electronic document DICTATION DATE: 05/05/207 OUTBOUND TELEMARKETING REPRESENTATIVE: JERRY 05/05/207 RPT#: [id number] DC DATE: STATUS: ADM IN [facility] [address] [place] [address] END OF REPORT
--- NOTE | 2020-05-05 13:33 | NUR ---
Nutrition follow-up: Pt is s/p ANSELMO Diet: consistent CHO with po intake 100% of last 3 meals Labs reviewed Wt: 331# Waiting on rehab placement RDN following.
--- NOTE | 2020-05-05 16:52 | NUR ---
OT NOTE: PT COMPLETED BED MOB TASKS WITH MOD A. PT COMPLETED SIDE ROLLING WITH ASSISTANCE TO LLE. PT STATED WHEN HE MOVES RESIDUAL LIMB IS VERY PAINFUL.PT COMPLETED UE AROM WITH FUNCTIONAL TASKS . [phone] THANK YOU,OREN GOMEZ
--- NOTE | 2020-05-05 22:06 | NUR ---
ASSESSED AT THE BEGINNING OF THE SHIFT. PT IS ALERT AND ORIENTED, ABLE TO VERBALIZE NEEDS. REQUESTED PAIN MED AT BEGINNING OF SHIFT AND RECEIVED WITH [facility] SOON TIME FOR MED. BRACE IN PLACE AND WOUND VAC N. HAS BEEN ON THE PHONE ALOT BUT IS NOW ON HIS CPAP AND GOING TO SLEEP.
[2020-05-06 04:00] VITALS: BP 133/67
[2020-05-06 05:01] LABS: BASOPHILS 0.3 % (0-2); HEMATOCRIT 26.9 % (42.0-54.0); IMMATURE GRANULOCYTES 0.9 % (0-5); LYMPHOCYTES 14.5 % (15-50); MCH 26.7 pg (26.0-34.0); MCHC 29.7 g/dL (31.0-37.0); MCV 89.7 fL (80.0-100.0); MONOCYTES 6.9 % (2-11); NEUTROPHILS 75.4 % (40-80); PLATELET COUNT 507 10x3/uL (130-400); RDW 15.4 % (11.5-14.5); WBC 12.8 10x3/uL (4.8-10.8)
[2020-05-06 05:32] LABS: ALBUMIN 1.7 g/dL (3.4-5.0); ANION GAP 14.6 mmol/L (8-16); BILIRUBIN - TOTAL 0.25 mg/dL (0.2-1.3); CALCIUM 8.4 mg/dL (8.5-10.1); CARBON DIOXIDE 20.5 mmol/L (21.0-32.0); CREATININE - SERUM 3.8 mg/dL (0.6-1.3); POTASSIUM - SERUM 4.1 mmol/L (3.5-5.1); PROTEIN - SERUM 6.7 g/dL (6.4-8.2); VANCOMYCIN - RANDOM 22.9 ug/mL (10.0-20.0)
[2020-05-06 09:07] VITALS: BP 144/83
[2020-05-06] MEDS ORDERED: Lovenox INJ SC (11:41)
[2020-05-06] MEDS ORDERED: Retacrit IV (11:41)
[2020-05-06] MEDS ORDERED: FEXOFENADINE HC60 MG PO (11:41)
[2020-05-06] MEDS ORDERED: ALBUTEROL2.5 MG/3 M UPD (11:41)
[2020-05-06] MEDS ORDERED: IPRAT-ALBUT 0.5-3 ML UPD (11:41)
[2020-05-06] MEDS ORDERED: ROCEPHIN 1 GM/D51 G1 IV (11:41)
[2020-05-06] MEDS ORDERED: oxyCODONE IR PO (11:42)
[2020-05-06] MEDS ORDERED: TESSALON PERLE100 MG PO (11:42)
[2020-05-06] MEDS ORDERED: NEURONTIN 300300 MG PO (11:42)
[2020-05-06] MEDS ORDERED: BETAPACE 80 MG80 MG PO (11:42)
[2020-05-06] MEDS ORDERED: MUCINEX600 MG PO (11:43)
[2020-05-06] MEDS ORDERED: SODIUM BICARBO650 MG PO (11:43)
[2020-05-06] MEDS ORDERED: ZOFRAN INJ IV (11:43)
[2020-05-06] MEDS ORDERED: MUPIROCIN22 GM TOPICAL (11:43)
[2020-05-06] MEDS ORDERED: FLORAJEN3 CAPS460 MG PO (11:43)
[2020-05-06] MEDS ORDERED: PROTONIX40 MG PO (11:43)
[2020-05-06 14:19] VITALS: BP 139/74
--- NOTE | 2020-05-06 16:38 | NUR ---
REPORT CALLED TO SAUL BARROSO ON THE REHAB UNIT. HIS IV WAS LEAKING,SO I REMOVED IT.
[2020-05-06 17:00] VITALS: BP 146/79
--- NOTE | 2020-05-06 18:36 | NUR ---
TAKEN TO REHAB ROOM 1114 A VIA WHEELCHAIR. HE HAS A WOUND VAC ON THE LEFT LEG.
--- NOTE | 2020-05-07 09:39 | MORECARE ---
CASE MANAGEMENT DISCHARGE SUMMARY PATIENT: MYRTLE LANDON JR UNIT: [id number] ADM DATE: 04/26/20 AGE: 44 : 73 SEX: M ROOM/BED: D.2226 AUTHOR: CHERISE,KORY PHYSICIAN: REFERRING PHYSICIAN: ASHLEY MYERS MD DATE OF SERVICE: 05/07/20 Discharge Plan Patient Name: MYRTLE LANDON Facility: [facility]:[place] : 1975 Planned Disposition: Home Anticipated Discharge Date: Discharge Date: 05/06/2020 Expected LOS: Initial Reviewer: [email or web address] Initial Review Date: 04/26/2020 Generated: 05/07/20 10:39 am Comments DCP- Discharge Planning Updated by [email or web address]: Ciarra Quinn on 05/05/20 11:[address] Patient Name: MYRTLE LANDON Admission Status: Urgent Accout number: [id number] Admission Date: 04-26-2020 : 1975 Admission Diagnosis: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 HE WOULD BENEFIT FROM INPATIENT REHAB WHEN READY FOR DISCHARGE. PREFERS THIS INPATIENT REHAB. CM TO FOLLOW AND ASSIST. 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 CM educated patient on the CM role and verbal consent given by patient to complete assessment. Patient lives at home with 15 YR old daughter. Patient is independent. At discharge patient plans to return home and feels this is a safe discharge. CM discussed availability of home health, rehab services, and medical equipment. Patient is scheduled for BKA in am and is unsure of what his needs will be. Patient states that if he needs HH or Rehab then he will agree. TANNER signed for DME/HH/ INPATIENT REHAB. Patient will have family to transport home. Patient denied known discharge needs at this time. CM will continue to follow and will assist as needed with dc plans/needs. Elderly Caregiver: Catherine Brand DCPIA - Discharge Planning Initial Assessment Updated by [email or web address]: Catherine Brand on 05/02/20 6:56 pm * Is the patient Alert and Oriented? Yes * How many steps to enter\exit or inside your home? 10 * PCP MYERS * [facility] * Preadmission Environment Home with Family * ADLs Independent * Equipment CPAP * List name and contact numbers for known caregivers / representatives who currently or will assist patient after discharge: XOCHILT LANDON - [facility]- [phone] * Verbal permission to speak to the caregivers and representatives has been obtained from the patient. Yes * Community resources currently utilized None * Additional services required to return to the preadmission environment? No * Can the patient safely return to the preadmission environment? Yes * Has this patient been hospitalized within the prior 30 days at any hospital? No Coverage Notice Reviewer: [id number] - Catherine Brand Notice Issued Date-Time: 05/02/2020 13:10 Notice Type: Patient Choice Letter Notice Delivered To: Patient Relationship to Patient: Self Assistant Professor Of Business Name: Delivery Method: HAND - Hand Delivered Majo Days: Prior Verbal Notification: Recipient Understood Notice: Yes Recipient Signature: Yes Med Rec Note Co-signed by Attending: Coverage Notice Comment: Last DP export: 05/05/20 11:28 a Patient Name: MYRTLE LANDON Page [phone] at 0939 All edits/amendments must be made on the electronic document DICTATION DATE: 05/07/20938 CAGE FIGHTER: JERRY 05/07/20938 RPT#: [id number] DC DATE:05/06/20 STATUS: DIS IN [facility] [address] [place] [address] END OF REPORT
== END 2020-05-06 19:43 | DRG 239 ==
LOC: D.MS 12:35 → D.ICU 12:35 → D.MS 05-02 16:04
PROVIDERS: Family Medicine; Internal Medicine; Orthopaedic Surgery; ADMIT Family Medicine; ATTEND Family Medicine
PROC: 0Y6Y0Z0 Detachment at Left 5th Toe, Complete, Open Approach (ICD-10-PCS; principal; 2020-04-30 09:29)
PROC: 0Y6J0Z2 Detachment at Left Lower Leg, Mid, Open Approach (ICD-10-PCS; 2020-05-03)
DX: E11.52 Type 2 diabetes mellitus with diabetic peripheral angiopathy with gangrene (principal); A41.9 Sepsis, unspecified organism; J18.9 Pneumonia, unspecified organism; I50.21 Acute systolic (congestive) heart failure; I96 Gangrene, not elsewhere classified; Z68.41 Body mass index [BMI] 40.0-44.9, adult; N17.9 Acute kidney failure, unspecified; E87.1 Hypo-osmolality and hyponatremia; L03.116 Cellulitis of left lower limb; I48.92 Unspecified atrial flutter; I13.0 Hypertensive heart and chronic kidney disease with heart failure and stage 1 through stage 4 chronic kidney disease, or unspecified chronic kidney disease; E11.10 Type 2 diabetes mellitus with ketoacidosis without coma; I10 Essential (primary) hypertension; E78.5 Hyperlipidemia, unspecified; G47.33 Obstructive sleep apnea (adult) (pediatric); E66.01 Morbid (severe) obesity due to excess calories; S92.912A Unspecified fracture of left toe(s), initial encounter for closed fracture; E11.22 Type 2 diabetes mellitus with diabetic chronic kidney disease; N18.9 Chronic kidney disease, unspecified; E87.6 Hypokalemia

== ENCOUNTER 2020-05-06 18:33 | Inpatient (IN) | payer MEDICARE ==
--- NOTE | 2020-05-05 23:00 | NUR ---
I have reviewed this patient and I concur with the Shift Assessment completed by the Licensed Practical Nurse today this shift.
[~2020-05-06] VITALS: Ht 180.3 cm; Wt 150.1 kg
[~2020-05-06 18:33] MED LIST: ALBUTEROL2.5 MG/3 M UPD; BAYER CHEWABLE81 MG PO; BETAPACE 80 MG80 MG PO; CELEXA20 MG PO; CLARITIN 10 MG10 MG PO; COZAAR100 MG PO; FEXOFENADINE HC60 MG PO; FLORAJEN3 CAPS460 MG PO; GLUCOPHAGE1000 MG PO; HYDRALAZINE HCL50 MG PO; HYDROCODON-ACE1 EA10 PO; IPRAT-ALBUT 0.5-3 ML UPD; KEFLEX500 MG PO; KLONOPIN1 MG PO; LEVEMIR IN100 UNITS/ SC; Lovenox INJ SC; METOPROLOL TART50 MG PO; MUCINEX600 MG PO; MUPIROCIN22 GM TOPICAL; NEURONTIN 300300 MG PO; NIASPAN500 MG PO; NORTRIPTYLINE H50 MG PO; NORVASC10 MG PO; NOVOLOG100 UNIT/1 SC; PROTONIX40 MG PO; ROCEPHIN 1 GM/D51 G1 IV; Retacrit IV; SODIUM BICARBO650 MG PO; TESSALON PERLE100 MG PO; VIBRAMYCIN 100100 MG PO; ZOFRAN INJ IV; oxyCODONE IR PO
--- NOTE | 2020-05-06 20:10 | NUR ---
PATIENT RECEIVED SITTING UP IN BED. VITAL SIGNS DONE. WOUND VAC ONGOING WITH GREENISH COLOR OUTPUT. ADMIT PAPERS SIGNED. BED LOW. CALL LIGHT WITHIN REACH. WILL CONTINUE TO MONITOR.
[2020-05-06 21:41] VITALS: BP 138/68
[2020-05-07 01:40] VITALS: BP 138/68; BMI 46.2
--- NOTE | 2020-05-07 03:53 | NUR ---
PATIENT EYES CLOSED. BIPAP CONTINUES. BED LOW. CALL LIGHT WITHIN REACH. WILL CONTINUE TO MONITOR.
--- NOTE | 2020-05-07 05:56 | NUR ---
RN WENT TO PATIENT ROOM TO START IV. PATIENT REFUSED & STATED "THEY SAID UPSTAIRS I COULD HAVE PILL ANTIBIOTICS. THIS NURSE WILL PASS ON TO NURSE ABOUT THIS CONCERN. DR. AHN TO BE CALLED BY DAY NURSE. BED LOW. CALL LIGHT WITHIN REACH. WILL CONTINUE TO MONITOR.
[2020-05-07 07:17] LABS: BASOPHILS 0.2 % (0-2); EOSINOPHILS 2.6 % (0-7); HEMATOCRIT 26.8 % (42.0-54.0); HEMOGLOBIN 8.1 g/dL (13.5-17.5); IMMATURE GRANULOCYTES 1.1 % (0-5); LYMPHOCYTES 11.2 % (15-50); MCH 27.2 pg (26.0-34.0); MCHC 30.2 g/dL (31.0-37.0); MCV 89.9 fL (80.0-100.0); MEAN PLATELET VOLUME 8.8 fL (7.4-10.4); MONOCYTES 5.8 % (2-11); NEUTROPHILS 79.1 % (40-80); PLATELET COUNT 424 10x3/uL (130-400); RBC 2.98 10x6/uL (4.20-6.10); RDW 15.5 % (11.5-14.5); WBC 13.2 10x3/uL (4.8-10.8)
--- NOTE | 2020-05-07 07:30 | NUR ---
A/A/OX4. DENIES ANY PAIN AT PRESENT TIME AND NO REQUESTS VOICED. SIDERAILS UP X 2, FLUIDS AND CALL LIGHT IN REACH, BED IN LOW LOCKED POSITION.
[2020-05-07 07:39] LABS: ANION GAP 14.4 mmol/L (8-16); CALCIUM 8.1 mg/dL (8.5-10.1); CARBON DIOXIDE 19.6 mmol/L (21.0-32.0); CREATININE - SERUM 3.4 mg/dL (0.6-1.3)
[2020-05-07 10:46] VITALS: BP 132/76
[2020-05-07 12:15] VITALS: Ht 180.3 cm; Wt 150.1 kg
--- NOTE | 2020-05-07 16:00 | NUR ---
I have reviewed this patient and I concur with the Shift Assessment completed by the Licensed Practical Nurse today this shift.
[2020-05-07 20:00] VITALS: BP 148/69
--- NOTE | 2020-05-07 20:00 | NUR ---
PATIENT RECEIVED SITTING UP IN BED WATCHING TV. ASSESSMENT & VITAL SIGNS DONE. BED LOW. CALL LIGHT WITHIN REACH. WILL CONTINUE TO MONITOR.
--- NOTE | 2020-05-08 02:25 | NUR ---
I have reviewed this patient and I concur with the Shift Assessment completed by the Licensed Practical Nurse today this shift.
--- NOTE | 2020-05-08 07:08 | NUR ---
POSITIONED ON BACK WITH EYES CLOSED AND CPAP ON. NO APPARENT DISTRESS. SIDERAILS UP X 2, CALL LIGHT AND FLUIDS IN REACH, BED IN LOW LOCKED POSITION.
[2020-05-08 12:36] VITALS: BP 124/84
--- NOTE | 2020-05-08 15:00 | NUR ---
I have reviewed this patient and I concur with the Shift Assessment completed by the Licensed Practical Nurse today this shift.
[2020-05-08 19:45] VITALS: BP 172/73
--- NOTE | 2020-05-08 20:00 | NUR ---
PATIENT RECEIVED SITTING UP IN BED. ASSESSMENT & VITAL SIGNS DONE. WOUND VAC CONTINUES. BRACE ON LEFT LOWER LEG. CALL LIGHT WITHIN REACH. WILL CONTINUE TO MONITOR.
--- NOTE | 2020-05-09 03:39 | NUR ---
PATIENT EYES CLOSED. RESPIRATIONS 18 & EVEN. BED LOW. URINAL & CALL LIGHT WITHIN REACH. WILL CONTINUE TO MONITOR.
--- NOTE | 2020-05-09 03:40 | NUR ---
I have reviewed this patient and I concur with the Shift Assessment completed by the Licensed Practical Nurse today this shift.
[2020-05-09 07:05] LABS: BASOPHILS 0.4 % (0-2); EOSINOPHILS 2.8 % (0-7); HEMATOCRIT 29.9 % (42.0-54.0); HEMOGLOBIN 8.9 g/dL (13.5-17.5); IMMATURE GRANULOCYTES 0.9 % (0-5); LYMPHOCYTES 8.4 % (15-50); MCH 27.1 pg (26.0-34.0); MCHC 29.8 g/dL (31.0-37.0); MCV 90.9 fL (80.0-100.0); MONOCYTES 5.2 % (2-11); NEUTROPHILS 82.3 % (40-80); PLATELET COUNT 460 10x3/uL (130-400); RBC 3.29 10x6/uL (4.20-6.10); RDW 15.6 % (11.5-14.5)
[2020-05-09 07:20] LABS: ANION GAP 13.6 mmol/L (8-16); CALCIUM 7.9 mg/dL (8.5-10.1); CARBON DIOXIDE 21.3 mmol/L (21.0-32.0); CREATININE - SERUM 2.9 mg/dL (0.6-1.3); POTASSIUM - SERUM 4.9 mmol/L (3.5-5.1)
[2020-05-09 08:00] VITALS: BP 158/86
--- NOTE | 2020-05-09 10:03 | NUR ---
PATIENT ALERT AND ORIENTED. RESTING QUIETLY IN BED. RESPIRATIONS EVEN NON LABORED. NO SIGNS OF DISTRESS NOTED. LEFT LEG AMPUTATED. WOUND VAC ON LEFT LEG. DENIES FURTHER NEEDS. SIDE RAILS UP. CALL LIGHT IN REACH. WILL CONTINUE TO MONITOR FOR SAFETY.
--- NOTE | 2020-05-09 17:19 | NUR ---
PATIENT ALERT AND ORIENTED. RESPIRATIONS EVEN NONLABORED. NO SIGNS OF DISTRESS NOTED. PATIENT STATES SMALL REDDEND AREA ON RIGHT SECOND TOE. CLEAN DRY INTACT. DENIES FURTHER NEEDS. SIDE RAILS UP. CALL LIGHT IN REACH. WILL CONTINUE TO MONITOR FOR SAFETY.
--- NOTE | 2020-05-09 18:47 | NUR ---
PATIENT ALERT AND ORIENTED. RESTING QUIETLY IN WHEELCHAIR. RESPIRATIONS EVEN NONLABORED. NO SIGNS OF DISTRESS NOTED. DENIES FURTHER NEEDS. CALL LIGHT IN REACH. WILL CONTINUE TO MONITOR FOR SAFETY.
--- NOTE | 2020-05-09 19:18 | NUR ---
PT SITTING UP IN WHEELCHAIR. CL IN REACH. DENIES NEEDS AT THIS TIME. WOUND VAC ATTACHED TO LEFT BKA. LUNGS CLEAR. BOWEL ACTIVE X4. A/O X4. RESP EVEN AND UNLABORED. WILL CONTINUE TO MONITOR.
[2020-05-09 21:38] VITALS: BP 142/73
--- NOTE | 2020-05-10 07:30 | NUR ---
RESTING QUIETLY IN BED.DENIES NEEDS.ASSESSMENT COMPLETED.CL IN EASY REACH.WILL CONTINUE WITH CURRENT PLAN OF CARE.
[2020-05-10 08:22] VITALS: BP 146/59
--- NOTE | 2020-05-10 08:54 | RHP ---
PATIENT: MYRTLE LANDON JR MEDICAL RECORD: [id number] ACCOUNT: [id number] LOCATION:[facility] : [birth year] ADMISSION DATE: 05/06/20 REHABILITATION HISTORY AND PHYSICAL EXAMINATION POST ADMISSION PHYSICIAN EXAMINATION ADMITTING DIAGNOSIS: Left ocngn-ykg-zqcz amputation. HISTORY OF PRESENT ILLNESS: The patient admitted to inpatient rehab due to sepsis, gangrene to left lower extremity. He is a 44-year-old morbidly obese gentleman who has got a history of hypertension, type 2 diabetes, obstructive sleep apnea and chronic use of CPAP. The patient was admitted to the hospital on 04/26/2020. He seemed to not have any feeling in his left foot. He was seen in the walk-in clinic and was taking antibiotics. When he was finally seen by his PCP, he was a direct admit to the hospital for lower extremity cellulitis and gangrenous area of his left fifth toe. He had developed some shortness of breath after admit and was found to be in atrial flutter with 2:1 conduction and cardiology saw this patient during his stay. The patient was in the ICU and then placed on the medical floor. He underwent a left foot incision and debridement of his small toe and amputation and wound VAC application on 04/30/2020. On 05/03/2020 underwent a left jengz-jvy-apck amputation due to nonhealing and worsening of his condition. He has been followed by orthopedic surgery, poultry field service technician, cardiology and pulmonary during his stay. He has been on supplemental O2 and BiPAP. He has been seen by physical and occupational therapy and progressing with them. He needs to be monitored closely with new-onset atrial flutter. He has got a healing area to his left bsqfu-yte-drad amputation at surgical site. He is being monitored for signs of infection, medication adjustments, pain control. He has been having some phantom pain. He has been monitored closely on his H&H and his blood sugars. He also has acute kidney injury on chronic kidney disease, and been having nephrology following. He has got weakness, balance deficits, impaired mobility, decreased range of motion, decreased strength, gait disturbance, limited safety awareness, he is a medical complexity, risk for falls and recent below-knee amputation. He needs cues for equipment. He has got low endurance, unsteady gait, balance, fatigues easily, inability to care for himself and self-care deficits. These are all barriers to his discharge home. He lives at home with his children, was independent with ADLs and mobility prior to this. He is currently setup for mod assist for ADLs and mod assist with mobility. He is using a rolling walker and hopping for ambulation at times. He plans to be able to return home as close to his prior level of functioning as we can hopefully get him there and he will need a prosthetic. COMORBIDITIES: Include weakness, morbid obesity, cellulitis, dyslipidemia, diabetes, CPAP usage, pneumonia in the past, hyperparathyroidism, low vitamin D. He has had acute respiratory failure, pulmonary edema. He has got atrial flutter with 2:1 conduction, shortness of breath and bilateral infiltrates. PAST MEDICAL HISTORY: Significant for neuropathy, sinus problems, diabetes, hypertension, dyslipidemia CPAP usage. PAST SURGICAL HISTORY: Includes a right venous stent placement, now wfnbk-vmo-hapy amputation. ALLERGIES: SARI INHIBITORS, ERYTHROMYCIN AND ALCOHOL. HISTORY AND PHYSICAL [id number] MYRTLE LANDON JR CURRENT MEDICATIONS: Include Retacrit 8000 units Saturday, Saturday, and Fridays; he is on Floranex daily; he is on Lovenox 30 mg subQ daily; he is on Celexa 20 mg daily; Rocephin 1 gram every 24 hours; aspirin chewable 81 mg daily; Norvasc 10 mg daily; Protonix 40 mg daily; sotalol 80 mg b.i.d.; sodium bicarbonate 650 b.i.d.; Pamelor 50 mg at bedtime; metoprolol 100 mg b.i.d.; Lantus 50 units subQ b.i.d.; he is on high resistance sliding scale; he is on hydralazine 50 mg t.i.d.; guaifenesin 1200 mg b.i.d.; Neurontin 300 mg b.i.d.; Moraima 60 mg b.i.d.; Tessalon Perles 100 mg t.i.d.; he is on a glucose replacement protocol if needed; he is on OxyIR 10 mg every 4 hours p.r.n.; Zofran 4 mg every 4 hours p.r.n.; he is on Bactroban ointment to be applied; DuoNeb updrafts as needed. HABITS: No current alcohol or tobacco use. FAMILY HISTORY: Noncontributory. SOCIAL HISTORY: The patient hopes to return back home and get back to his prior level of functioning. REVIEW OF SYSTEMS: GENERAL: Does complain of some weakness and fatigue. HEENT: Denies cold, cough, or congestion. CARDIOVASCULAR: Denies any chest pain. PHYSICAL EXAMINATION: VITAL SIGNS: Stable, afebrile. GENERAL: A morbidly obese gentleman in no acute distress, alert upon exam. HEENT: Normocephalic and atraumatic. Mucosa moist. NECK: Supple. No lymphadenopathy. LUNGS: Clear at this time in upper stiles, decreased breath sounds in the bases secondary to body habitus. CARDIOVASCULAR: Regular rate and rhythm at this time. No murmurs, rubs or gallops. ABDOMEN: Soft, benign, and nondistended. Positive bowel sounds times 4. EXTREMITIES: Does have a noted area of a ekjfx-uga-aphg amputation. It looks good at this time. No signs of any type of drainage or infection. NEUROLOGIC: He does have some noted diffuse weakness. LABORATORY DATA: His white count is 13.2, H&H 8.1 and 26.8 and platelet count is 424. Sodium 135, potassium 4.0, BUN and creatinine of 47 and 3.4 and blood sugar is noted to be 128. ASSESSMENT: A 44-year-old gentleman admitted to the rehab with a working diagnosis of left gqkhc-hzb-wqyl amputation. The patient has potential to make improvement. We instituted the following multidisciplinary therapies include, but not limited to physical, occupational, respiratory, speech, nutritional services, prosthetics and orthotics. Given his complex medical condition and risks for more complications, rehabilitation services cannot be provided at a low level of care such a nursing home facility. PLAN: 1. Admit to [facility] for inpatient therapy to include the following disciplines; A. Physical therapy to improve gait, all transfer skills and bed mobility to a modified independent level. HISTORY AND PHYSICAL [id number] MYRTLE LANDON JR. Occupational therapy to improve activities of daily living. C. Case management to help with discharge planning and placement options. D. Nutrition to assist with nutritional needs. E. Rehabilitation nursing to assist in monitoring the patient's underlying medical conditions and to assist with any type bowel or bladder management. 2. The patient's current medication and medical care will be continued. 3. The patient will be placed on standard fall precautions. 4. We will continue on a PPI for any type of GI prophylaxis and also on Lovenox for DVT prophylaxis. 5. I am going to try to see again either in the a.m. on Saturday or will see again Saturday a.m. TRANSINT:[id number] Voice Confirmation ID: [id number] DOCUMENT ID: [id number] RAJIV notes whether there has been none or any medical/functional change since admission: - No change since prescreen. RAJIV attests patient continues to be appropriate for IRF: - Continues to be appropriate. PO JACOB MD at 0854 CC: [id number] DICTATION DATE: 05/07/20824 ASSISTANT DIRECTOR OF SECURITY: 05/07/20 1208 ADM IN [place] [place] [id number] [place] [address]
--- NOTE | 2020-05-10 10:37 | NUR ---
PATIENT ADMITTED TO REHAB FROM ACUTE FLOOR. DR. MYERS IS PATIENT PCP AND DME AT HOME IS A C-PAP. DISCHARGE PLANS ARE FOR PATIENT TO RETURN HOME WITH FAMILY. WILL CONTINUE TO FOLLOW WITH PATIENT.
--- NOTE | 2020-05-10 14:26 | NUR ---
NUTRITION FOLLOW UP: INTERVIEW: Met with patient and family member. He stated that his appetite is good. He denied recent N/V/D/C and chewing/swallowing issues. He stated he does not enjoy the taste of Nomi and would like to try Glucerna for extra nutrients for wound healing. DIET: Diabetic Diet SUPPLEMENT: Glucerna BID PO INTAKE: 94% avg for 9 meals WEIGHT: 331 lbs on 05/07 BM: x 2 on 05/03 SIG MEDS: Lovenox, Protonix, Humalog SIG LABS: 05/09- BUN: 41(H), Creatinine: 2.9(H), Ca: 7.9(L), A1C: 11.4(H) GOALS: PO intake >/= 65% avg for meals, wound healing, BM q [address] to continue to follow and monitor patient DHS
--- NOTE | 2020-05-10 19:31 | NUR ---
RECEIVED SITTING UP IN BED WITH TV ON. ALERT ANMD ORIENTED X4. WOUND VAC TP LT BKA. REPORTED A FALL THIS AM. DENIES ANY NEED AT THIS TIME.
[2020-05-10 21:50] VITALS: BP 158/80
[2020-05-11 08:20] VITALS: BP 151/68
[2020-05-11 10:35] LABS: BASOPHILS 0.5 % (0-2); HEMATOCRIT 29.6 % (42.0-54.0); HEMOGLOBIN 8.7 g/dL (13.5-17.5); IMMATURE GRANULOCYTES 0.6 % (0-5); LYMPHOCYTES 13.7 % (15-50); MCH 26.9 pg (26.0-34.0); MCHC 29.4 g/dL (31.0-37.0); MCV 91.4 fL (80.0-100.0); MEAN PLATELET VOLUME 9.3 fL (7.4-10.4); MONOCYTES 6.2 % (2-11); PLATELET COUNT 421 10x3/uL (130-400); RBC 3.24 10x6/uL (4.20-6.10); RDW 15.4 % (11.5-14.5); WBC 9.9 10x3/uL (4.8-10.8)
[2020-05-11 10:36] LABS: ANION GAP 14.9 mmol/L (8-16); CALCIUM 8.4 mg/dL (8.5-10.1); CARBON DIOXIDE 20.4 mmol/L (21.0-32.0); CREATININE - SERUM 2.9 mg/dL (0.6-1.3); POTASSIUM - SERUM 5.3 mmol/L (3.5-5.1)
--- NOTE | 2020-05-11 13:08 | NUR ---
ABRASIONS TO TOES OF RIGHT FOOT CLEANED WITH WOUND CATCHER FILTER TIP AND BACTRBAN OINTMENT APPLIED AND COVERED WITH BANDAIDS.
--- NOTE | 2020-05-11 14:09 | NUR ---
Pt asking what the purpose of the prevena is/why he still has it. Explained that the prevena incision mgmt system that he has on decreases risk of infection of surgical site, helps the incision to close and also helps to decrease risk of dehiscence. He voiced his understanding. He stated that it has now been 8 days since placement during surgery. Wound care nurse notified Dr. Wilkerson and received orders to d/c the prevena. Dressing was removed. The incision site on left bka is intact with ashly. Redness noted where drape was removed. No odor or drainage noted. Pt tolerated well and was very happy to have "one less tube". Covered incision with mepilex AG. Wound care will monitor.
--- NOTE | 2020-05-11 19:36 | NUR ---
PATIENT RECIEVED SITTING UP IN BED. ASSESSMENT & VITAL SIGNS DONE. NO C/O PAIN OR DISTRESS. BED LOW. CALL LIGHT WITHIN REACH. WILL CONTINUE TO MONITOR.
[2020-05-11 21:42] VITALS: BP 148/71
--- NOTE | 2020-05-12 01:08 | NUR ---
PATIENT TOILETED. VOID ONLY. PATIENT RETURNED TO BED. SANDWICH.AT BEDSIDE. BED LOW. CALL LIGTH WITHIN REACH. WILL CONTINUE TO MONITOR.
--- NOTE | 2020-05-12 02:54 | NUR ---
I have reviewed this patient and I concur with the Shift Assessment completed by the Licensed Practical Nurse today this shift.
--- NOTE | 2020-05-12 07:45 | NUR ---
RESTING QUIETLY IN BED.AROUSES EASILY FOR ASSESSMENT.DENIES NEEDS AT PRESENT TIME.WILL CONTINUE WITH CURRENT PLAN OF CARE.CL IN EASY REACH,BED IN LOW POSITION.
[2020-05-12 08:00] VITALS: BP 175/84
--- NOTE | 2020-05-12 15:26 | NUR ---
CARE TEAM MEETING: PATIENT PROGRESSISNG IN THRAPY . HIS TENATIVE DISCHARGE DATE IS 05/19/20. WILL CONTINUE TO FOLLOW WITH PATIENT.
--- NOTE | 2020-05-12 17:34 | NUR ---
DRESSING CHANGE DONE TO TOES OF RT FOOT.NO REDDNESS OR DRAINAGE PRESENT,NO SIGNS OF INFECTION.BANDAIDS WITH BACTROBAN ,WOUND WASH UTILIZED.
--- NOTE | 2020-05-12 20:00 | NUR ---
PATIENT RECEIVED SITTING UP IN BED. ASSESSMENT & VITAL SIGNS DONE. CALL LIGHT & URINAL WITHIN REACH. BED LOW. WILL CONTINUE TO MONITOR.
[2020-05-12 21:45] VITALS: BP 155/80
--- NOTE | 2020-05-12 23:43 | NUR ---
PATIENT ASLEEP. SAID HIS NAME & HE WOKE UP. PATIENT SANDWICH TRAY AT BEDSIDE. PATIENT UP & EATING. BED LOW. CALL LIGHT WITHIN REACH. WILL CONTINUE TO MONITOR.
--- NOTE | 2020-05-13 02:50 | NUR ---
I have reviewed this patient and I concur with the Shift Assessment completed by the Licensed Practical Nurse today this shift.
--- NOTE | 2020-05-13 07:15 | NUR ---
ASSISTED UP TO SHOWER WITH OT. NO COMPLAINTS AND NO REQUESTS VOICED. WILL CONTINUE POC.
[2020-05-13 08:00] VITALS: BP 153/79
--- NOTE | 2020-05-13 12:08 | NUR ---
ABRASIONS ON TOES CLEANED WITH WOUND FRONT END SOFTWARE ENGINEER AND BACTROBAN OINTMENT APPLIED.
--- NOTE | 2020-05-14 04:48 | NUR ---
1944) REC'D UP IN HALLWAY IN WHEELCHAIR.DENIES ANY COMPLAINTS AT PRESENT TIME. WILL CONTINUE TO MONITOR FOR ANY CHGES AND FOLLOW CURRENT PLAN OF CARE.
--- NOTE | 2020-05-14 07:30 | NUR ---
POOSITIONED ON BACK WITH EYES CLOSED AND CPAP ON. NO DISTRESS NOTED. CALL LIGHT IN REACH AND BED IN LOW LOCKED POSITION. DRESSING TO LEFT LEG C/D/I.
[2020-05-14 12:49] VITALS: BP 146/85
--- NOTE | 2020-05-14 20:02 | NUR ---
PATIENT RECEIVED SITTING UP ON SIDE 0F BED. ASSESSMENT & VITAL SIGNS DONE. NO C/O PAIN OR DISTRESS. BED LOW. CALL LIGHT WITHIN REACH. WILL CONTINUE TO MONITOR.
[2020-05-14 20:34] VITALS: BP 156/76
--- NOTE | 2020-05-15 02:03 | NUR ---
PATIENT EYES CLOSED. RESPIRATIONS 18 & EVEN. BED LOW. CALL LIGHT WITHIN REACH. WILL CONTINUE TO MONITOR.
--- NOTE | 2020-05-15 04:11 | NUR ---
I have reviewed this patient and I concur with the Shift Assessment completed by the Licensed Practical Nurse today this shift.
--- NOTE | 2020-05-15 07:30 | NUR ---
POSITIONED ON BACK WITH CPAP ON. NO APPARENT PROBLEMS NOTED. SIDERAILS UP X 2 CALL LIGHT IN REACH AND BED IN LOW, LOCKED POSITION.
[2020-05-15 10:58] VITALS: BP 157/64
--- NOTE | 2020-05-15 20:00 | NUR ---
PATIENT RECEIVED SITTING UP IN BED. DAUGHTER AT BEDSIDE. ASSESSMENT & VITAL SIGNS DONE. NO C/O PAIN OR DISTRESS. BED LOW. CALL LIGHT WITHIN REACH. WILL CONTINUE TO MONITOR.
[2020-05-15 20:05] VITALS: BP 190/93
--- NOTE | 2020-05-16 00:30 | NUR ---
PATIENT AWAKENED & ATE HIS SANDWICH. CPAP ON AFTER HE ATE. BED LOW. CALL LIGHT WITHIN REACH. WILL CONTINUE TO MONITOR.
--- NOTE | 2020-05-16 02:38 | NUR ---
I have reviewed this patient and I concur with the Shift Assessment completed by the Licensed Practical Nurse today this shift.
[2020-05-16 07:35] LABS: BASOPHILS 0.8 % (0-2); EOSINOPHILS 5.4 % (0-7); HEMATOCRIT 29.1 % (42.0-54.0); HEMOGLOBIN 8.5 g/dL (13.5-17.5); IMMATURE GRANULOCYTES 0.5 % (0-5); LYMPHOCYTES 17.1 % (15-50); MCH 27.1 pg (26.0-34.0); MCHC 29.2 g/dL (31.0-37.0); MCV 92.7 fL (80.0-100.0); MEAN PLATELET VOLUME 9.7 fL (7.4-10.4); MONOCYTES 7.7 % (2-11); NEUTROPHILS 68.5 % (40-80); PLATELET COUNT 364 10x3/uL (130-400); RBC 3.14 10x6/uL (4.20-6.10); RDW 15.9 % (11.5-14.5); WBC 8.9 10x3/uL (4.8-10.8)
[2020-05-16 07:51] LABS: ANION GAP 12.5 mmol/L (8-16); CARBON DIOXIDE 25.7 mmol/L (21.0-32.0); CREATININE - SERUM 2.5 mg/dL (0.6-1.3); POTASSIUM - SERUM 5.2 mmol/L (3.5-5.1)
--- NOTE | 2020-05-16 08:44 | NUR ---
ALERT AND ORIENTED. NO C/O PAIN. RESP EVEN AND UNLABORED.
[2020-05-16 08:51] VITALS: BP 173/88
--- NOTE | 2020-05-16 11:16 | NUR ---
Nutrition Follow-up: Stage 4 chronic renal failure. Diet: Diabetic + Glucerna with lunch and dinner PO intake: 100% Last BM: 05/15/20 x 2. WT: 331# (05/07/20), no new weight Meds noted: SSI, latus Labs noted: K 5.2(H), BUN 41(H), Cr 2.5(H), GFR 30(L) Skin: wound to left stump May need to consider changing diet to renal to restrict K intake. Will discontinue Glucerna as patient is eating adequately. Noted from previous nutrition note that patient does not like Nomi. RD following.
--- NOTE | 2020-05-16 13:06 | NUR ---
SITTING IN CHAIR EATING LUNCH. NO DISTRESS NOTED.
--- NOTE | 2020-05-16 17:56 | NUR ---
NO CHANGE IN ASSESSMENT. NO C/O PAIN. CL IN REACH.
--- NOTE | 2020-05-16 20:00 | NUR ---
PT IS RESTING IN BED WITH EYES OPEN. ALERT AND ORIENTED X 3. DENIES ACUTE PAIN OR DISCOMFORT AT THIS TIME. DRESSING TO LEFT LEG IS CDI. PT IS PLEASANT AND COOPERATIVE WITH STAFF. SR'S ARE UP X 2 IN BED. CALL LIGHT AND BEDSIDE TABLE ARE WITHIN EASY REACH.
[2020-05-16 21:40] VITALS: BP 169/86
--- NOTE | 2020-05-16 22:59 | NUR ---
RESTING QUIETLY IN BED WITH EYES CLOSED. NO DISTRESS NOTED.
--- NOTE | 2020-05-17 02:43 | NUR ---
I have reviewed this patient and I concur with the Shift Assessment completed by the Licensed Practical Nurse today this shift.
--- NOTE | 2020-05-17 05:58 | NUR ---
PT RESTING IN BED WITH EYES CLOSED. AWOKE FOR AM MED, AND THEN HE COVERED HIS HEAD TO GO BACK TO SLEEP.
[2020-05-17 08:00] VITALS: BP 157/80
--- NOTE | 2020-05-17 12:25 | NUR ---
PT SITTING UP FOR LUNCH, FAMILY AT BEDSIDE, DENIES NEEDS. WCTM.
--- NOTE | 2020-05-17 19:00 | NUR ---
PT REPORT GIVEN BY CHIO URIBE
--- NOTE | 2020-05-17 19:30 | NUR ---
INTRODUCED SELF TO PT. HE WAS SITTING UP IN BED WITH HIS STUMP OVER THE SIDE OF THE BED. I BROUGHT A NEW PAD TO PUT UNDER THE STUMP FOR IT TO HAVE A PLACE TO DRAIN OTHER THAN THE BED. HE HAS SEROUS DRAINAGE FROM MANY AREAS OF HIS INCISION. HIS STUMPT IS OPEN TO AIR. SUTURES IN PLACE. HEART SOUNDS WNL. LUNGS CLEAR. SKIN IS WARM AND DRY. PT IS AWAKE AND ALERT. ORIENTED X 4. HE KNOWS TO USE THE CALL LIGHT WHEN HE NEEDS SOMETHING.
--- NOTE | 2020-05-17 20:15 | NUR ---
PT WANTS TO GET IN THE SHOWER. TOWELS AND WASHCLOTHES TAKEN TO HIM. HE TRANSFERES HIMSELF VERY WELL FROM BED TO W/C AND FROM W/C TO THE TUB BENCH. HE KNOWS TO CALL IF HE NEEDS HELP
--- NOTE | 2020-05-17 21:45 | NUR ---
IN PT ROOM TO GIVE MEDS. HE TAKES THEM ALL VERY WELL WITHOUT PROBLEMS. BLOOD SUGAR TAKEN. IT IS 240. HE STATES HE HAD PASTA TONIGHT AND THAT IS THE REASON IT'S UP. I GAVE HIM 12 UNITS PER HIS SLIDING SCALE SQ IN THE BACK OF THE LEFT ARM. HE GETS 50 UNITS OF LANTUS SQ AND THIS WAS GIVEN IN THE BACK OF HIS RIGHT ARM. HE IS ABLE TO PUT HIS BIPAP ON WITHOUT ASSIST. HE STATES HE IS GOING TO BED.
[2020-05-17 22:02] VITALS: BP 169/85
--- NOTE | 2020-05-17 23:00 | NUR ---
PT IS WATCHING TV. HIS BIPAP IS ON. HE STATES HE'S GOING TO SLEEP IN A LITTLE WHILE. NO C/O AND NO NEEDS. I ASKED HIM IF HE NEEDED PAIN MEDS AND HE SAID NO.
--- NOTE | 2020-05-18 | NUR ---
PT IS RESTING WITH HIS EYES CLOSED. RESPIRATIONS EVEN AND UNLABORED.
--- NOTE | 2020-05-18 05:55 | NUR ---
PT HAS BEEN RESTING QUIETLY ALL SHIFT. HE HAS BEEN CHECKED ON EVERY 2 HOURS. HE HAS NO C/O OR NEEDS AT THIS TIME.
[2020-05-18 08:00] VITALS: BP 141/73
--- NOTE | 2020-05-18 14:57 | NUR ---
CARE TEAM MEETING: PATIENT IS DOING WELL IN THERAPY. TENATIVE DISCHARGE DATE 05/19/20. ORDER WILL BE FAXED TO [facility] FOR A WHEELCHAIR, BEDSIDE COMMODE AND TUB TRANSFER BENCH. WILL CONTINUE TO FOLLOW WITH PATIENT.
--- NOTE | 2020-05-18 15:42 | NUR ---
ORDER HAS BEEN FAXED TO [facility] FOR HOME EQUIPMENT.
[2020-05-18 21:59] VITALS: BP 135/75
--- NOTE | 2020-05-18 23:45 | NUR ---
PT ASLEEP AWAKENS EASILY TO VOICE, NO NEEDS NOTED, FALL/SAFETY PRECAUTIONS IN PLACE, FLUIDS/CALL LIGHT WITHIN REACH
[2020-05-19 07:38] VITALS: BP 153/74
--- NOTE | 2020-05-19 10:38 | NUR ---
PATIENT DISCHARGING HOME WITH FAMILY TODAY. [address] [facility] WILL PROVIDE THERAPY AT HOME. [facility] DELIVERED A WHEELCHAIR, BEDSIDE COMMODE AND A TUB TRANSFER BENCH. TANNER SIGNED, IMM SERVED AND EXPLAINED. DR. PAUL 06/14/20 @ 1:30, DR. AHN 06/06/20 @ 1:00, DR. OTOOLE 06/07/20 @ 1:45, DR. GUARDADO 05/23/20 @ 9:10, DR. MYERS OFFICE WILL CALL PATIENT WITH AN APPOINTMENT. DISCHARGE INSTRUCTIONS FAXED TO PCP, HOME HEALTH AND REVIEWED WITH PATIENT PER [facility] NURSE.
--- NOTE | 2020-05-19 11:00 | NUR ---
PT DISCHARGED WITH FAMILY AT THIS TIME. PT ESCORTED OUT VIA WHEELCHAIR BY HOSPITAL STAFF. PT DISCHARGE INSTRUCITONS REV'D AND PT STATES UNDERSTANDING. PT MEDICATIONS CALLED IN TO [facility].
== END 2020-05-19 11:28 | disposition home health service (06) | DRG 559 ==
LOC: D.REHAB 18:33
PROVIDERS: ADMIT Emergency Medicine; ATTEND Emergency Medicine
DX: Z47.81 Encounter for orthopedic aftercare following surgical amputation (principal); E11.10 Type 2 diabetes mellitus with ketoacidosis without coma; I50.21 Acute systolic (congestive) heart failure; I48.92 Unspecified atrial flutter; N17.9 Acute kidney failure, unspecified; L03.116 Cellulitis of left lower limb; I13.0 Hypertensive heart and chronic kidney disease with heart failure and stage 1 through stage 4 chronic kidney disease, or unspecified chronic kidney disease; Z68.41 Body mass index [BMI] 40.0-44.9, adult; Z89.512 Acquired absence of left leg below knee; E66.01 Morbid (severe) obesity due to excess calories; E78.5 Hyperlipidemia, unspecified; R53.1 Weakness; E21.3 Hyperparathyroidism, unspecified; E11.22 Type 2 diabetes mellitus with diabetic chronic kidney disease; N18.9 Chronic kidney disease, unspecified; R26.9 Unspecified abnormalities of gait and mobility; S62.617D Displaced fracture of proximal phalanx of left little finger, subsequent encounter for fracture with routine healing